=== PATIENT | male | born 1965 | race Caucasian/White ===

== ENCOUNTER 2018-01-03 18:26 | Emergency (ER) | payer OTHER ==
[~2018-01-03] VITALS: Ht 177.8 cm; Wt 90.7 kg
[~2018-01-03 18:26] MED LIST: CLONIDINE0.1 PO; DOLOPHINE HCL10 MG PO; FLEXERIL PO; LISINOPRIL10 MG; LYRICA; NOHOMEMEDICATIONS; PERCOCET 5-3251 EACH PO
[2018-01-03 19:42] LABS: ABSOLUTE MONOCYTES 0.6 thou/uL (0.0-1.2); ABSOLUTE NEUTROPHILS 4.4 thou/uL (1.6-8.1); BASOPHILS 0.4 %; EOSINOPHILS 0.3 %; HEMATOCRIT 46.4 % (42.0-52.0); HEMOGLOBIN 15.8 gm/dL (14.0-18.0); LYMPHOCYTES 28.2 %; MCH 29.9 pg (26.0-34.0); MCHC 34.1 g/dL (28.0-37.0); MCV 87.8 fL (80.0-100.0); MONOCYTES 8.8 %; MPV 9.2 fl. (7.2-11.1); NUCLEATED RBCS 0 /100WBC; PLATELET COUNT* 100 thou/uL (150-400); POLYS 62.3 %; RBC 5.29 mil/uL (4.50-6.00); RDW-CV 12.8 % (10.5-14.5); WBC 7.1 thou/uL (4.0-11.0)
[2018-01-03 19:51] LABS: CALCIUM 8.9 mg/dL (8.5-10.1); CREATININE 0.7 mg/dL (0.6-1.3); POTASSIUM 3.7 mmol/L (3.5-5.1)
[2018-01-03 19:55] LABS: ALBUMIN 3.3 g/dL (3.4-5.0); TOTAL BILIRUBIN 0.7 mg/dL (<0.1-1.0); TOTAL PROTEIN 7.8 g/dL (6.4-8.2)
[2018-01-03] MEDS ORDERED: PROAIR HFA8.5 GM INH (20:14)
[2018-01-03] MEDS ORDERED: AZITHROMYCIN 2250 MG PO (20:14)
[2018-01-03] MEDS ORDERED: PREDNISONE 20 M20 MG PO (20:14)
[2018-01-03 20:27] VITALS: BP 145/90
== END 2018-01-03 20:27 | disposition home or self-care (01) ==
LOC: M.ERS 18:26
PROVIDERS: Nurse Practitioner Psychiatric/Mental Health
DX: J40 Bronchitis, not specified as acute or chronic (principal); I10 Essential (primary) hypertension; F17.210 Nicotine dependence, cigarettes, uncomplicated; Z90.89 Acquired absence of other organs; Z88.0 Allergy status to penicillin

== ENCOUNTER 2018-02-25 08:18 | Observation (INO) | payer OTHER ==
[~2018-02-25] VITALS: Ht 177.8 cm; Wt 86.2 kg
[~2018-02-25 08:18] MED LIST changes: +AZITHROMYCIN 2250 MG PO; +PREDNISONE 20 M20 MG PO; +PROAIR HFA8.5 GM INH
[2018-02-25 08:20] VITALS: BP 186/92
[2018-02-25 08:40] LABS: ABSOLUTE EOSINOPHILS 0.1 thou/uL (0.0-0.7); ABSOLUTE LYMPHOCYTES 2.6 thou/uL (0.8-5.3); ABSOLUTE MONOCYTES 0.5 thou/uL (0.0-1.2); ABSOLUTE NEUTROPHILS 5.1 thou/uL (1.6-8.1); BASOPHILS 0.1 %; EOSINOPHILS 1.2 %; HEMATOCRIT 49.5 % (42.0-52.0); HEMOGLOBIN 16.9 gm/dL (14.0-18.0); LYMPHOCYTES 31.2 %; MCH 29.9 pg (26.0-34.0); MCHC 34.2 g/dL (28.0-37.0); MCV 87.4 fL (80.0-100.0); MONOCYTES 5.9 %; MPV 10.1 fl. (7.2-11.1); NUCLEATED RBCS 0 /100WBC; PLATELET COUNT* 224 thou/uL (150-400); POLYS 61.6 %; RBC 5.66 mil/uL (4.50-6.00); RDW-CV 13.2 % (10.5-14.5); WBC 8.4 thou/uL (4.0-11.0)
[2018-02-25 08:44] LABS: ANION GAP 8 mmol/L (7-16); BUN 13 mg/dL (7-18); CALCIUM 9.3 mg/dL (8.5-10.1); CHLORIDE 101 mmol/L (98-107); CO2 26 mmol/L (21-32); CREATININE 0.8 mg/dL (0.6-1.3); GLUCOSE 322 mg/dL (70-99); POTASSIUM 5.2 mmol/L (3.5-5.1); SODIUM 135 mmol/L (136-145)
[2018-02-25 08:54] LABS: ALBUMIN 3.6 g/dL (3.4-5.0); LIPASE 138 U/L (73-393); MAGNESIUM 1.7 mg/dL (1.8-2.4); NT-PRO BRAIN NAT PEPTIDE 6 pg/mL (<300); SGPT 51 U/L (30-65); TOTAL BILIRUBIN 1.3 mg/dL (<0.1-1.0); TOTAL PROTEIN 7.8 g/dL (6.4-8.2); TROPONIN-I LEVEL <0.06 ng/mL (<0.06)
[2018-02-25 09:07] LABS: ALKALINE PHOSPHATASE 61 U/L (46-116); SGOT 35 U/L (15-37)
[2018-02-25 10:15] VITALS: BP 133/77
[2018-02-25 10:19] VITALS: BP 145/88
[2018-02-25] MEDS ORDERED: LYRICA 75 MG CA75 MG PO (10:32)
[2018-02-25 11:47] VITALS: BP 121/67
[2018-02-25 12:53] LABS: CHOLESTEROL 282 mg/dL (<200); HDL CHOLESTEROL 36 mg/dL (>40); LDL CHOLESTEROL 194 mg/dL (<100); TC:HDL 7.8 Ratio (Not establshd); TRIGLYCERIDE 260 mg/dL (<150); VLDL 52 mg/dL (<40)
[2018-02-25 12:55] LABS: SERUM ASSESSMENT Clear
[2018-02-25 15:35] VITALS: BP 135/74
[2018-02-25 20:00] VITALS: BP 131/74
[2018-02-25 22:53] LABS: CALCIUM 9.1 mg/dL (8.5-10.1); CREATININE 0.7 mg/dL (0.6-1.3); MAGNESIUM 1.7 mg/dL (1.8-2.4); POTASSIUM 3.9 mmol/L (3.5-5.1)
[2018-02-26 00:07] VITALS: BP 129/82
[2018-02-26 03:52] VITALS: BP 127/88
[2018-02-26 05:10] LABS: HEMATOCRIT 46.1 % (42.0-52.0); HEMOGLOBIN 15.6 gm/dL (14.0-18.0); MCHC 33.8 g/dL (28.0-37.0); MCV 88.8 fL (80.0-100.0); RBC 5.19 mil/uL (4.50-6.00); RDW-CV 13.2 % (10.5-14.5); WBC 8.2 thou/uL (4.0-11.0)
[2018-02-26 05:40] LABS: ANION GAP 8 mmol/L (7-16); BUN 15 mg/dL (7-18); CALCIUM 9.1 mg/dL (8.5-10.1); CHLORIDE 103 mmol/L (98-107); CO2 29 mmol/L (21-32); CREATININE 0.8 mg/dL (0.6-1.3); GLUCOSE 245 mg/dL (70-99); SODIUM 140 mmol/L (136-145); TROPONIN-I LEVEL <0.06 ng/mL (<0.06)
--- NOTE | 2018-02-26 10:04 | EKG ---
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: Tera LUIS : 1965 Requested By: Jason Mcnulty Order Number: [id number] MD: Jonah Vann Measurements Intervals [place] Rate: 62 P: 47 MT: 150 QRS: -22 QRSD: 86 T: 41 QT: 406 QTc: 413 Interpretive Statements Sinus rhythm Borderline left axis deviation Probable septal infarct, old Baseline wander in lead(s) II,aVR No previous ECG available for comparison Electronically Signed On 02-26-2018 10:04:31 CDT by Jonah Vann [email or web address] <ELECTRONICALLY SIGNED> By: Jonah Vann MD, [facility] 02/26/18 1004 0 0 Jonah Vann MD, [facility] /EPI
--- NOTE | 2018-02-26 10:08 | EKG ---
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
[2018-02-26] MEDS ORDERED: ATORVASTATIN CA20 MG PO (10:39)
[2018-02-26] MEDS ORDERED: NICOTINE TRANSD21 M1 TRANSDERM (10:39)
[2018-02-26] MEDS ORDERED: GLUCOTROL5 MG PO (10:39)
[2018-02-26] MEDS ORDERED: GLUCOPHAGE500 MG PO (10:39)
[2018-02-26 12:00] VITALS: BP 141/88
[2018-02-26 15:38] VITALS: BP 135/79
[2018-02-26 20:00] VITALS: BP 126/78
[2018-02-26 21:01] VITALS: BP 135/79
[2018-02-27 04:10] LABS: GLYCOHEMOGLOBIN (HGB A1C) 11.5 % (4.8-5.6)
--- NOTE | 2018-02-27 16:23 | CARDNUC ---
[place] [address] CARDIAC NUCLEAR IMAGING REPORT Name: JIMMY BAKER Room: [address] Bashir Lopez#: [id number] Admission: 02/25/18 Attend Phys: Rivera Clayton Discharge: 02/26/18 Date of : 69 Date of Service: 02/27/18 1623 Report #: [id number] THIS REPORT FOR: //name// APPROVED REPORT Study performed: 02/25/2018 12:30:00 Exam: Nuclear Stress Test Indication: Chest pain Patient Location: In-Patient Room #: 215 Stress Tech: Lydia Oliveira Stress Nurse: Monserrat Ayala RN NM Tech:JEANNIE Barba Ht: 5 ft 10 in Wt: 190 lbs BSA: 2.04 m2 BMI: 27.25 Medical History Medical History: Diabetes, HTN, Hyperlipidemia, Smoking Medications: atorvastatin, asa, ntg sl Allergies: penicillin Cardiac Risk Factors: DM, HTN, Hyperlipidemia, Smoking Exercise History: Sedentary Stress Test Details Stress Test: Pharmacologic stress testing performed using 0.4 mg of regadenoson per 5 mL given IV over 10 seconds. Reason for pharmacologic stress test: physical limitation. HR Resting HR: 59 bpm Max Heart Rate (APMHR): 170 bpm Max HR Achieved: 88 bpm Target HR (85% APMHR): 144 bpm % of APMHR: 51 Recovery HR: 76 bpm BP Resting BP: 127/79 mmHg Max BP: 140/84 mmHg ECG Resting ECG: Sinus Rhythm, normal EKG Stress ECG: Sinus Rhythm, normal EKG ST Change: None Arrhythmia: [place] [address] CARDIAC NUCLEAR IMAGING REPORT Name: JIMMY BAKER Room: [address]#: [id number] Admission: 02/25/18 Attend Phys: Rivera Clayton Discharge: 02/26/18 Date of : 69 Date of Service: 02/27/18 1623 Report #: [id number] Recovery ECG: Sinus Rhythm, normal EKG Recovery ST Change: None Recovery Arrhythmia: None Clinical Reason for Termination: Completed protocol Stress Symptoms: - Exercise duration: - min sec Exercise capacity: 1.0 METs The patient had continuous chest pain from arrival to the department and throughout the testing phase. Nurse Comments Patient states he has chest pain constantly, rated @ 2, patient states chest pain increased to 4 post lexiscan, and then returned to previous constant chest pain rated @ 2 in recovery. Stress ECG Conclusion The baseline 12-lead electrocardiogram shows sinus rhythm without significant ST or T wave abnormality. EKGs obtained during and post Lexiscan infusion show sinus rhythm with no significant ST or T wave changes when compared to baseline. There were no stress-induced arrhythmias. NM EXAM: Myocardial Perfusion REST/STRESS Imaging Protocol: Rest Tc-99m/Stress Tc-99m 1 day Resting Data Rest SPECT myocardial perfusion imaging was performed in supine position 30 minutes following the intravenous injection of 10.8 mCi of Tc-99m Sestamibi. Time of rest injection: 1155 Time of rest imagin The images were gated to evaluate regional wall motion and calculate left ventricular ejection fraction. Administration Route: IV Pharmacologic Stress Pharmacologic stress test was performed by injecting Regadenoson 0.4 mg IV push followed by the intravenous injection of 35.8 mCi of Tc-99m Sestamibi. Time of stress injection: 1330 Time of stress imagin Administration Route: IV Gated Stress SPECT was performed 40 minutes [place] [address] CARDIAC NUCLEAR IMAGING REPORT Name: JIMMY BAKER [address] [id number] Admission: 02/25/18 Attend Phys: Rivera Clayton Discharge: 02/26/18 Date of : 69 Date of Service: 02/27/18 1623 Report #: [id number] The images were gated to evaluate regional wall motion and calculate left ventricular ejection fraction. Prone imaging was performed. Study Quality Study: Good Artifact: No artifact Study Data At rest, the left ventricular ejection fraction was 64%.. Post stress, the left ventricular ejection was 72%.. TID = 0.96. Perfusion Normal left ventricular perfusion. Wall Motion Normal left ventricular wall motion. Nuclear Conclusion ECG Findings: negative for ischemia Clinical Findings: non-diagnostic Nuclear Findings: negative for ischemia Exercise Capacity: not assessed Left Ventricular Function: normal Risk Study: low Perfusion images show no defect to suggest infarct or ischemia. Left ventricular systolic function is normal on gated studies. This is a low risk study. <Conclusion> The baseline 12-lead electrocardiogram shows sinus rhythm without significant ST or T wave abnormality. EKGs obtained during and post Lexiscan infusion show sinus rhythm with no significant ST or T wave changes when compared to baseline. There were no stress-induced arrhythmias. <ELECTRONICALLY SIGNED> By: Jason Mcnulty MD, FACC 02/27/18 1623 162 162 Jason Mcnulty MD, FACC /INF
--- NOTE | 2018-03-02 15:46 | CON ---
[address] [address] CONSULTATION Name: SAMUELJIMMY JASMINE Room: [address] Bashir Lopez#: [id number] Admission: 02/25/18 Attend Phys: Rivera Napoles, Discharge: 02/26/18 Date of : 69 Report #: [id number] THIS REPORT FOR: //name// CC: JAYA physician/PCP Rivera Napoles DATE OF SERVICE: 02/25/2018 PRIMARY CARE PHYSICIAN: None. CHIEF COMPLAINT: Chest pain. HISTORY OF PRESENT ILLNESS: The patient is a 52-year-old man with history of diabetes and hypertension who currently does not have a primary care doctor. He had an episode of resting chest discomfort which was noted to be in his left side radiating to his left shoulder, lasting 15 minutes long. He presented to the Emergency Room, his ECG demonstrated a sinus rhythm with repolarization. Initial cardiac troponin level was normal, and he is chest pain free. Historically, the patient will get some chest discomfort with certain activities. He works at [employer], and if he is lifting up a heavy tire, he will get some left-sided chest pain, but he also gets this with his right arm. He has a history of cervical spine fusion and has chronic joint pain. He denies shortness of breath or chest discomfort with physical activity such as walking. He is without orthopnea, PND or palpitations. He presents with a sinus rhythm. He denies dizziness or lightheadedness. He denies diaphoresis. PAST MEDICAL HISTORY: Diagnosed with diabetes a few years ago. He has mild hypertension. SOCIAL HISTORY: He is a tobacco user. Denies drug use or marijuana use. FAMILY HISTORY: Unknown. He is adopted. REVIEW OF SYSTEMS: GASTROINTESTINAL: No nausea or vomiting. HEMATOLOGIC: No anemia or bleeding disorders. RENAL: No history of kidney failure. NEUROLOGIC: Denies slurred speech, numbness or weakness. THROAT: Denies any dysphagia. GENITOURINARY: No dysuria. ENDOCRINE: Positive diabetes. [place] [address] CONSULTATION Name: JIMMY BAKER Room: [address] Bashir Lopez#: [id number] Admission: 02/25/18 Attend Phys: Rivera Napoles, Discharge: 02/26/18 Date of : 69 Report #: [id number] PAST SURGICAL HISTORY: C-spine fusion. ALLERGIES: No aspirin allergies. HE DOES HAVE PENICILLIN ALLERGIES. MEDICATIONS: Currently, he presents with medications only of Lyrica 75 mg and methadone. PHYSICAL EXAMINATION: VITAL SIGNS: Blood pressure on presentation was 180s/70s, this morning on medical therapy 120/67. Heart rate is 64, in a sinus rhythm. Temperature 36.7. GENERAL: Pleasant middle-aged male who is alert, no apparent distress. HEENT: Eyes: EOMs are intact. No facial asymmetry. NECK: Supple, no jugular venous distention. Carotid upstrokes are normal. CARDIOVASCULAR: Regular. I cannot hear a murmur or S3. LUNGS: Clear to auscultation. ABDOMEN: Nontender. EXTREMITIES: No peripheral edema. ECG shows sinus rhythm, LVH. Troponin I is 0.06.: Hemoglobin 16.9, white blood cell count is 8.4, platelet count is 224,000. D-dimer 0.19. IMAGING: Chest x-ray shows no acute cardiopulmonary process. IMPRESSION: 1. Chest pain. He has numerous cardiovascular risk factors. He has not quite ruled out, his first troponin level is normal, but he has 2-3 sets pending. His presenting ECG did not show acute ST segment changes. I would continue with aspirin and p.r.n. nitroglycerin as well as anti-inflammatories. We will plan for either cardiac stress testing or because of numerous cardiovascular risk factors, if his troponin is abnormal, we will proceed with a cardiac catheterization. 2. Hypertension. He may require therapy for this and seems somewhat labile. 3. Lipid status, survey lipids and treat accordingly. 4. Diabetes mellitus. I will defer treatment of this to your office. 5. Tobacco use. Cessation is recommended. <ELECTRONICALLY SIGNED> By: Jose Jiménez MD, FACC 03/02/18 1546 1229 [id number] Jiménez MD, FACC /nt
== END 2018-02-26 21:45 | disposition home or self-care (01) ==
LOC: M.ERS 08:18 → M.2W 09:32 → M.TBA-ER 09:32 → M.2W 09:32
PROVIDERS: Emergency Medicine Emergency Medical Services; Internal Medicine; Internal Medicine Cardiovascular Disease; ADMIT Family Medicine
DX: I20.9 Angina pectoris, unspecified (principal); I10 Essential (primary) hypertension; E11.9 Type 2 diabetes mellitus without complications; G89.29 Other chronic pain; M50.30 Other cervical disc degeneration, unspecified cervical region; E78.5 Hyperlipidemia, unspecified; E78.00 Pure hypercholesterolemia, unspecified; F17.210 Nicotine dependence, cigarettes, uncomplicated

== ENCOUNTER 2018-06-16 12:45 | Emergency (ER) | payer OTHER ==
[~2018-06-16] VITALS: Ht 180.3 cm; Wt 90.7 kg
[~2018-06-16 12:45] MED LIST changes: +ATORVASTATIN CA20 MG PO; +GLUCOPHAGE500 MG PO; +GLUCOTROL5 MG PO; +LYRICA 75 MG CA75 MG PO; +NICOTINE TRANSD21 M1 TRANSDERM
[2018-06-16] MEDS ORDERED: NORCO 5-325 TA1 EACH PO (12:55)
[2018-06-16 15:17] VITALS: BP 127/91
[2018-06-17] MEDS ORDERED: LYRICA 50 MG50 MG (03:51)
== END 2018-06-16 15:17 | disposition home or self-care (01) ==
LOC: M.ERS 12:45
DX: M54.2 Cervicalgia (principal); I10 Essential (primary) hypertension; E11.9 Type 2 diabetes mellitus without complications; F17.210 Nicotine dependence, cigarettes, uncomplicated; Z88.0 Allergy status to penicillin

== ENCOUNTER 2018-06-17 03:41 | Emergency (ER) | payer OTHER ==
[~2018-06-17] VITALS: Ht 180.3 cm; Wt 90.7 kg
[~2018-06-17 03:41] MED LIST changes: +NORCO 5-325 TA1 EACH PO
[2018-06-17] MEDS ORDERED: LYRICA 50 MG50 MG (03:51)
[2018-06-17 04:46] VITALS: BP 119/79
== END 2018-06-17 04:47 | disposition home or self-care (01) ==
LOC: M.ERS 03:41
DX: M54.12 Radiculopathy, cervical region (principal); I10 Essential (primary) hypertension; E11.9 Type 2 diabetes mellitus without complications; F17.210 Nicotine dependence, cigarettes, uncomplicated; Z88.0 Allergy status to penicillin

== ENCOUNTER 2018-06-17 15:04 | Emergency (ER) | payer OTHER ==
[~2018-06-17] VITALS: Ht 180.3 cm; Wt 90.7 kg
[~2018-06-17 15:04] MED LIST changes: +LYRICA 50 MG50 MG
[2018-06-17 15:10] VITALS: BP 132/81
== END 2018-06-17 15:40 | disposition home or self-care (01) ==
LOC: M.ERS 15:04
DX: G89.29 Other chronic pain (principal); M54.2 Cervicalgia; I10 Essential (primary) hypertension; E11.9 Type 2 diabetes mellitus without complications; F17.210 Nicotine dependence, cigarettes, uncomplicated; Z88.0 Allergy status to penicillin